=== PATIENT | female | born 1980 | race African-American/Black ===

== ENCOUNTER 2016-11-15 08:24 | Inpatient (IN) ==
[2016-11-15 09:11] LABS: Apearance,Urine CLEAR (Clear); Bilirubin,Urine Negative (Negative); Blood, Urine Negative (Negative); Glucose,Urine (UA) Negative (Negative); Ketones,Urine Negative (Negative); Mucus,Urine Occasional /LPF (Occasional); Nitrite,Urine Negative (Negative); Protein,Urine Negative; RBC,Urine <1 /HPF (0-4); Squamous Epithelial Cell,Urine Occasional /HPF (0-10); Urine Color Yellow (Yellow); Urine Urobilinogen < 2.0 EU/DL (0.2-1.0); WBC,Urine <1 /HPF (0-6)
[2016-11-15] MEDS ORDERED: ONDANSETRON 4 MG/2 ML VIAL IV ONE (09:22)
[2016-11-15] MEDS ORDERED: MEPERIDINE 50 MG/1 ML VIAL IV ONE (09:22)
[2016-11-15] MEDS ORDERED: MEPERIDINE 50 MG/1 ML VIAL ONE (09:24)
[2016-11-15] MEDS ORDERED: ONDANSETRON 4 MG/2 ML VIAL ONE ×2 (09:24→15:55)
[2016-11-15] MEDS ORDERED: ALUM/MAG/SIMETH/LIDO VISC 1:1 30 ML BOTTLE PO ONE ×2 (09:41→10:00)
[2016-11-15] MEDS: LACTATED RINGERS 1,000 ML IV SCH ×2 (09:47→12:29)
[2016-11-15] MEDS ORDERED: MEPERIDINE 25 MG/1 ML VIAL ONE (10:08)
[2016-11-15] MEDS ORDERED: MEPERIDINE 25 MG/1 ML VIAL IV ONE ×2 (10:21→12:09)
--- NOTE | 2016-11-15 10:43 | Ultrasound Report ---
US gallbladder Indication: Upper abdominal pain, nausea/vomiting. Comparison: None. Technique: Multiple longitudinal and transverse real-time sonographic images of the right upper quadrant of the abdomen are obtained. Findings: The liver measures 17.8 cm and demonstrates normal echogenicity without focal abnormality on submitted images. Small amount of debris noted within the bladder suspicious for biliary sludge. Gallbladder wall thickness is upper limits of normal. The gallbladder is not significantly distended. Small-volume cholelithiasis demonstrated which is noted within the region of the gallbladder neck.. Sonographic Mcdaniel sign reportedly positive. The common duct measures 0.4 cm in diameter and there is no evidence of significant intrahepatic ductal dilation. Right kidney measures 10.9 cm. Pancreas obscured by bowel gas. IMPRESSION: Small amount of debris noted within the bladder suspicious for biliary sludge. Gallbladder wall thickness is upper limits of normal. The gallbladder is not significantly distended. Small-volume cholelithiasis demonstrated which is noted within the region of the gallbladder neck.. Sonographic Mcdaniel sign reportedly positive. Cholecystitis not excluded. Recommend correlation with patient presentation, lab values, etc. Critical Results: Initiated by Danya at time of dictation. PROCEDURE INTERPRETED AT [facility] DEPARTMENT OF RADIOLOGY Final Report Signed by: Dr Ori Hernandez
[2016-11-15] MEDS ORDERED: TERBUTALINE 1 MG/1 ML VIAL SUBCUT ONE (12:57)
[2016-11-15] MEDS: ONDANSETRON 4 MG/2 ML VIAL IV PRN ×2 (16:07→22:07)
--- NOTE | 2016-11-15 16:15 | General Surgery Consult Note ---
Assessment and Plan - Time spent with patient Time spent with patient: Greater than 30 minutes (1) Cholecystitis, acute with cholelithiasis Status: Acute Assessment and plan: Ms. Roberts is a very pleasant 36-year-old -[place] female who is 24 weeks gestation with her second baby. She has no medical problems and only surgical history is . She is noted to have a 1 day history of intense abdominal pain radiating through to the back along with nausea and vomiting. Ultrasound showing acute cholecystitis with cholelithiasis. Her labs are pending at this time. We will make her n.p.o. after midnight and see how the patient feels in the morning. Dr. Olmedo may opt to take her to the OR for laparoscopic cholecystectomy in the morning. Dr. Olmedo to see and examined patient further recommendations to follow. Current Visit: Yes (2) Nausea & vomiting Status: Acute Current Visit: Yes (3) 24 weeks gestation of Status: Acute Current Visit: Yes History of Present Illness Chief complaint: Abdominal pain and nausea History of present illness: Ms. Roberts is a 36 year old -[place] female who is 24 weeks with her second baby with no medical history admitted by Dr. Booth from OB with nausea, vomiting, and upper abdominal pain. Patient states she woke at 4 AM this morning with severe epigastric and right and left upper quadrant abdominal pain that radiated through to the back associated with nausea. Patient states she took Tums and Tylenol and it settled for about an hour and then about 6 AM it started back. then she started vomiting. She still feels nauseated and is having pain but she does feel somewhat hungry. She has been n.p.o. all day. She has been receiving Demerol and Zofran from Dr. Booth. Patient had a gallbladder ultrasound that showed a small amount of debris within the gallbladder suspicious for biliary sludge with gallbladder wall thickness in the upper limits of normal. There is also small volume cholelithiasis demonstrated in the neck. Her sonographic Mcdaniel sign was positive. CBC, CMP, amylase and lipase are all pending. Upon exam patient is visibly nauseated and mildly uncomfortable. She is tender to palpation in the epigastric right and left upper quadrants. She denies headache, dysphagia, chest pain, shortness of breath, constipation, or lower extremity edema. Dr. Olmedo has been consulted for evaluation. Home Medications Medication Instructions Recorded Confirmed Type Vit No.130/Iron/Folic 1 each PO DAILY 11/15/16 11/15/16 History [ Vitamins] Allergies Allergy/AdvReac Type Severity Reaction Status Date / Time No Known Allergies Allergy Verified 11/15/16 08:49 Medical,Surgical,& Family Hx - Medical History Cardio: No history of: Hypertension Respiratory: No history of: Pneumonia Reproductive: No history of: Complication - Surgical History Reproductive Surgeries: Surgical HX of;: Section - Family History Family History: Reports;: Family Heart Disease - Social History Smoking Status: Never smoker Frequency of Alcohol Use: None Type of Drug Use: None Marital Status: Lives With:: Spouse Functional capacity: independent ambulation Review of systems: A complete 10 system review of systems was obtained and pertinent positives and negatives per HPI Exam - Constitutional Exam: Constitutional System: Mild distress. No tremulousness. Head: Normocephalic, atraumatic. Ears, Nose and Throat System: No evidence of Otitis or Mastoiditis. No epistaxis or discharge Eyes System: Pupils equal, round, and reactive. Extraocular muscles intact. Neck: Supple, without adenopathy, No jugular venous distention. No thyromegaly, neck mass, or prior surgery apparent. Respiratory System: Chest clear to auscultation. Cardiovascular System: Heart with regular rate and rhythm. No murmur. GI System: Abdomen firm, moderately tender in epigastrium, left and right upper quadrant. Normo active bowel sounds present. Musculoskeletal System: limbs with no pedal edema. Full distal pulses. Neurological System: No discernable sensory deficit. No aphasia Psychiatric System: Conversation is rational Results - Labs Labs: CBC, CMP, amylase and lipase are all pending - Diagnostic Findings Procedure: Ultrasound: report reviewed by me (Small amount of debris noted within the gallbladder suspicious for biliary sludge. Gallbladder wall thickness is upper limits of normal. Gallbladder is not distended but there is small amount cholelithiasis demonstrated within the region of the gallbladder neck)
[2016-11-15 16:36] LABS: Basophils % 0.3 % (0.0-0.8); Hematocrit 36.1 VOL% (35.7-47.0); Immature Granulocytes % 2.1 %; Immature Granulocytes Absolute 0.24 #; Lymphocytes # 1.5 10*3/uL (1.4-4.0); Lymphocytes % 12.9 % (21.3-54.2); Mean Corpuscular HGB Conc 33.2 GM/DL (32-36); Mean Corpuscular Hemoglobin 27 PG (27-34); Mean Corpuscular Volume 79.9 FL (87-102); Mean Platelet Volume 10.9 FL (9.6-12.0); Monocytes # 0.6 10*3/uL (0.11-0.8); Monocytes % 5.2 % (1.7-12.7); Neutrophils # 9.2 10*3/uL (1.4-7.4); Neutrophils % 79.5 % (38.7-73.9); Platelet Count 203 T/CUMM (130-400); Red Blood Count 4.52 MC/CUMM (3.8-5.5); Red Cell Distribution Width 14.5 % (9.3-17.3); White Blood Count 11.5 T/CUMM (4-12)
[2016-11-15 17:04] LABS: Alanine Aminotransferase 23 U/L (13-56); Alkaline Phosphatase 104 U/L (45-117); Amylase 88 U/L (25-115); Aspartate Amino Transferase 17 U/L (0-37); Bilirubin,Total < 0.39 MG/DL (0.2-1.0); Blood Urea Nitrogen 5 MG/DL (7-18); Calcium 9.2 MG/DL (8.5-10.1); Glucose 77 MG/DL (74-106); Osmolality,Calculated 268.8 MOS/KG (273-304); Sodium 137 MMOL/L (136-145); Total Protein 6.8 G/DL (6.4-8.3)
[2016-11-15] MEDS ORDERED: ONDANSETRON 4 MG/2 ML VIAL IV PRN (18:09)
--- NOTE | 2016-11-15 18:17 | OB/GYN History & Physical ---
History of Present Illness Chief complaint: Right upper quadrant pain after eating fried greasy food last evening History of present illness: Ms. Roberts is a 36 year old female 36-year-old 2 para 1 at approximately 24 weeks gestation, who presented to labor and delivery with right upper quadrant pain. Patient is being followed at the [facility] and further questioning demonstrated that she is a previous section. Ultrasound of the abdomen demonstrated multiple gallstones and sludge. This patient received IV fluids, IV Demerol and anti- emetics to try to relieve her symptoms. Patient is resting very comfortably at this particular time. Fetus a heart tones are category 1. In light of these findings on the ultrasound this patient will be evaluated by general surgery for further evaluation. Home Medications Medication Instructions Recorded Confirmed Type Vit No.130/Iron/Folic 1 each PO DAILY 11/15/16 11/15/16 History [ Vitamins] Allergies Allergy/AdvReac Type Severity Reaction Status Date / Time No Known Allergies Allergy Verified 11/15/16 08:49 Medical,Surgical,& Family Hx - Medical History Cardio: No history of: Hypertension Respiratory: No history of: Pneumonia Reproductive: No history of: Complication - Surgical History Reproductive Surgeries: Surgical HX of;: Section - Family History Family History: Reports;: Family Heart Disease - Social History Smoking Status: Never smoker Frequency of Alcohol Use: None Type of Drug Use: None 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 - Constitutional General appearance: mild distress - Antepartum / Post Antepartum Exam Cervix - Dilatation: Thick closed - Head Head exam: Present: normal inspection - Eye Eye exam: Present: EOMI Pupils: Present: ROLAND - ENT ENT exam: Present: normal exam - Neck Neck exam: Present: normal inspection - Respiratory Respiratory exam: Present: clear to auscultation bilaterally - Breast Breasts: as per HPI Menstruation: as per HPI - Cardiovascular Cardiovascular exam: Present: regular rate and rhythm - GI/Abdominal GI/Abdominal exam: Present: normal bowel sounds, guarding, tenderness (Right upper quadrant, midsternal area) - Extremities Exam Extremities exam: Present: normal inspection - Back Exam Back exam: Present: normal inspection - Neurological Exam Neurological exam: Present: alert, oriented X3 - Psychiatric Psychiatric exam: Present: normal affect - Skin Skin exam: Present: normal color Assessment and Plan (1) Cholecystitis, acute with cholelithiasis Status: Acute Assessment and plan: 24 weeks gestation with acute cholecystitis with cholelithiasis. This patient will be evaluated for by general surgery for further management. Risks and benefits were thoroughly discussed with this patient at this point time this patient is in full agreement. Current Visit: Yes Results - Labs CBC & BMP: 11/15/16 16:27 11/15/16 16:27
[2016-11-15] MEDS: ceFAZolin 2,000 MG in PREMIX 1 EACH IV SCH (18:42)
[2016-11-15] MEDS: MEPERIDINE 25 MG/1 ML VIAL IV PRN (22:12)
[2016-11-16] MEDS: ceFAZolin 2,000 MG in PREMIX 1 EACH IV SCH ×4 (00:40→18:26)
[2016-11-16] MEDS: MEPERIDINE 25 MG/1 ML VIAL IV PRN ×6 (01:32→14:35)
[2016-11-16] MEDS: ONDANSETRON 4 MG/2 ML VIAL IV PRN ×4 (04:59→17:12)
[2016-11-16] MEDS ORDERED: MEPERIDINE 25 MG/1 ML VIAL IV ONE (08:30)
--- NOTE | 2016-11-16 09:06 | General Surgery Progress Note ---
Assessment and Plan - Time spent with patient Time spent with patient: Less than 30 minutes (1) Cholecystitis, acute with cholelithiasis Status: Acute Assessment and plan: Ms. Roberts is a very pleasant 36-year-old -[place] female who is 24 weeks gestation with her second baby. She has no medical problems and only surgical history is . She is noted to have a 1 day history of intense abdominal pain radiating through to the back along with nausea and vomiting. Ultrasound showing acute cholecystitis with cholelithiasis. Her labs are pending at this time. We will make her n.p.o. after midnight and see how the patient feels in the morning. Dr. Olmedo may opt to take her to the OR for laparoscopic cholecystectomy in the morning. Dr. Olmedo to see and examined patient further recommendations to follow. 11/16/2016 Dr. Olmedo has become ill and Dr. Zayas is taking over care. Patient is still not feeling well so she will be taken to the OR today for laparoscopic cholecystectomy. Her white count was normal, LFTs and pancreatic enzymes were all normal. Dr. Zayas will see and examine patient. Preop orders have been submitted. Current Visit: Yes (2) Nausea & vomiting Status: Acute Current Visit: Yes (3) 24 weeks gestation of Status: Acute Current Visit: Yes Subjective Narrative: Ms. Roberts is still not feeling well this morning. She tolerated her clear liquid yesterday but she continues to have pain and nausea. She wants to go ahead and have her gallbladder removed if possible. She is n.p.o. Exam - Constitutional Vitals: Period Temp Pulse Resp BP Sys/Peterson Pulse Ox Last 24 Hr 97.8 F-98.1 F 93-101 18-20 95-132/52-72 98-100 Exam: 36-year-old -[place] female, mild distress due to pain, alert and oriented is present Chest clear CV regular rate and rhythm Abdomen protuberant and firm, tender epigastrium left and right upper quadrant Extremities no edema Results - Labs CBC & BMP: 11/15/16 16:27 11/15/16 16:27 Lab Results: I have reviewed the past 24 hour labs
[2016-11-16] MEDS ORDERED: CITRIC ACID/SODIUM CITRATE 30 ML UDCUP PO ONE (10:19)
[2016-11-16] MEDS ORDERED: FAMOTIDINE 20 MG/2 ML VIAL IV ONE (10:22)
[2016-11-16] MEDS ORDERED: TISSUE ADHESIVE 1 EACH APPLICATOR TOP ONE (12:15)
[2016-11-16] MEDS ORDERED: LIDOCAINE 1%/EPI INJ 20 ML VIAL ONE (12:16)
[2016-11-16] MEDS ORDERED: PROPOFOL 200 MG/20 ML VIAL IV ONE (12:51)
[2016-11-16] MEDS ORDERED: ONDANSETRON 4 MG/2 ML VIAL ONE ×2 (12:51→14:20)
[2016-11-16] MEDS ORDERED: LIDOCAINE 1% 5 ML VIAL ONE (12:51)
[2016-11-16] MEDS ORDERED: ROCURONIUM 100 MG/10 ML VIAL IV ONE (12:51)
[2016-11-16] MEDS ORDERED: SUCCINYLCHOLINE 200 MG/10 ML VIAL ONE (12:51)
--- NOTE | 2016-11-16 13:51 | Progress Note ---
Assessment and Plan (1) Cholecystitis, acute with cholelithiasis Status: Acute Assessment and plan: 24 weeks gestation with acute cholecystitis with cholelithiasis. This patient will be evaluated for by general surgery for further management. Risks and benefits were thoroughly discussed with this patient at this point time this patient is in full agreement. Current Visit: Yes Family Medicine PN Sub Interval history: 36-year-old female with acute cholecystitis, patient still experiencing discomfort after receiving IV fluid anti-medics and analgesic. Early this a.m. after reexamining the patient she still has a right upper quadrant and midsternal discomfort. General surgery will evaluate this patient determine whether or not a laparoscopic cholecystectomy will be indicated at this time. I am in full agreement with this particular option if possible if not we will try oral medication. Will follow this patient after her surgical procedure risks benefits thoroughly discussed with this patient and her . Exam (Progress Note) - Constitutional Vitals: Period Temp Pulse Resp BP Sys/Peterson Pulse Ox Last 24 Hr 97.8 F-98.1 F 86-101 18-20 95-132/52-72 97-100 Results - Labs CBC & BMP: 11/15/16 16:27 11/15/16 16:27
[2016-11-16] MEDS ORDERED: HYDROmorphone 2 MG/1 ML VIAL ONE (14:17)
[2016-11-16] MEDS ORDERED: MEPERIDINE 25 MG/1 ML VIAL ONE ×2 (14:19→14:50)
[2016-11-16] MEDS ORDERED: ONDANSETRON 4 MG/2 ML VIAL IV PRN (14:24)
[2016-11-16] MEDS ORDERED: fentaNYL 100 MCG/2 ML VIAL ONE (14:28)
[2016-11-16] MEDS ORDERED: LACTATED RINGERS 1,000 ML IV SCH (15:00)
--- NOTE | 2016-11-16 15:27 | Operative Note ---
Date of procedure: 11/16/16 Pre-op diagnosis: Acute cholecystitis Post-op diagnosis: same Procedure: Preoperative diagnosis Acute cholecystitis Postoperative diagnosis Same Procedures performed Laparoscopic cholecystectomy Findings Acute and chronic cholecystitis was seen. The critical view of safety was obtained prior to placing clips on the cystic duct and cystic artery. Complications None apparent Specimen Gallbladder Anesthesia GETA Blood loss 5 mL Indications Acute cholecystitis 24 weeks patient. The risks, benefits, and alternatives of the operation were discussed with the patient in detail, and the expected outcomes were reviewed. In particular, the risk of bowel injury, liver injury, bile duct leak and bile duct injury, as well as pancreatitis and retained or drop stones were discussed in detail. All the patient's questions were answered. She like to proceed with the operation. We did discuss the risk of demise in addition to the standard risks of this operation. I felt that the risk of having problems with the was higher by not doing surgery on the gallbladder especially since she is in the second trimester. Description of procedure The patient was taken to the operating room and transferred to the operating table in the supine position. Pressure points were padded and SCDs were placed to bilateral lower extremities. General endotracheal anesthesia was administered. The abdomen was prepped chlorhexidine and draped sterilely. Preoperative antibiotics were administered, a timeout was performed. The abdomen was entered in the midepigastric location with a direct cutdown technique. An 11 mm skin incision was made with an 11 blade scalpel the fascia was opened with a knife. A trocar was placed and the CO2 was inserted into the abdomen. Diagnostic laparoscopy revealed no evidence of trocar placement injury. The patient was placed in reverse Trendelenburg and left side rolled down position. Under direct visualization, and after local anesthetic was administered, a 5 mm supraumbilical trocar and 2 right subcostal 5 mm trochars were placed. The gallbladder had evidence of acute inflammation. The gallbladder was grasped at the fundus and infundibulum. The cystic plate peritoneum was dissected into the critical view of safety was obtained. The cystic duct and cystic artery were clipped twice initially and once laterally and divided laparoscopically with scissors between clips. Gallbladder was removed from the gallbladder fossa using hook electrocautery. The gallbladder was placed in a Endo Catch retrieval bag through the 11 mm trocar and removed through the trocar with no significant fascial extension of the incision. The gallbladder fossa was suction irrigated until the effluent was clear. The CO2 was released from the abdomen and the trochars were removed. The fascia at the midepigastric trocar site was closed in 2 layers with 0 Vicryl sutures. The skin incisions were closed with 4-0 Monocryl subcuticular suture and sterile skin glue. The patient was awakened from anesthesia and transferred to recovery. Postoperative plan Advance diet as tolerated Pain control monitoring per OB Anesthesia: ABHILASH Surgeon / Physician: Fan Zayas Estimated blood loss: minimal Specimens: other (gallbladder) Condition: stable Disposition: PACU Results - Labs CBC & BMP: 11/15/16 16:27 11/15/16 16:27 Discharge Plan - Discharge Medications No Action Vit No.130/Iron/Folic [ Vitamins] 1 each PO DAILY - Follow Up or Referral - Forms/Instructions
[2016-11-17] MEDS: ceFAZolin 2,000 MG in PREMIX 1 EACH IV SCH ×3 (00:14→14:22)
[2016-11-17] MEDS: LACTATED RINGERS 1,000 ML IV SCH (00:14)
[2016-11-17 06:53] LABS: Basophils % 0.1 % (0.0-0.8); Eosinophils # 0.1 10*3/uL (0.0-0.87); Eosinophils % 0.7 % (0.00-10.9); Hematocrit 33.1 VOL% (35.7-47.0); Hemoglobin 10.7 GM/DL (12.0-16.0); Immature Granulocytes % 1.6 %; Immature Granulocytes Absolute 0.12 #; Lymphocytes # 1.9 10*3/uL (1.4-4.0); Lymphocytes % 25.1 % (21.3-54.2); Mean Corpuscular HGB Conc 32.3 GM/DL (32-36); Mean Corpuscular Hemoglobin 27 PG (27-34); Mean Corpuscular Volume 82.5 FL (87-102); Mean Platelet Volume 10.8 FL (9.6-12.0); Monocytes # 0.6 10*3/uL (0.11-0.8); Monocytes % 8.1 % (1.7-12.7); Neutrophils # 4.9 10*3/uL (1.4-7.4); Neutrophils % 64.4 % (38.7-73.9); Platelet Count 180 T/CUMM (130-400); Red Blood Count 4.01 MC/CUMM (3.8-5.5); Red Cell Distribution Width 14.6 % (9.3-17.3); White Blood Count 7.6 T/CUMM (4-12)
[2016-11-17] MEDS ORDERED: MAGNESIUM HYDROXIDE SUSP 30 ML UDCUP PO PRN (07:13)
[2016-11-17 07:24] LABS: Alanine Aminotransferase 23 U/L (13-56); Albumin 2.5 G/DL (3.4-5.0); Alkaline Phosphatase 88 U/L (45-117); Aspartate Amino Transferase 22 U/L (0-37); Bilirubin,Total < 0.39 MG/DL (0.2-1.0); Blood Urea Nitrogen 4 MG/DL (7-18); Calcium 8.5 MG/DL (8.5-10.1); Glucose 90 MG/DL (74-106); Magnesium 2.1 MG/DL (1.8-2.4); Osmolality,Calculated 273.5 MOS/KG (273-304); Sodium 139 MMOL/L (136-145); Total Protein 5.7 G/DL (6.4-8.3)
--- NOTE | 2016-11-17 09:16 | General Surgery Progress Note ---
Assessment and Plan (1) Cholecystitis, acute with cholelithiasis Status: Acute Assessment and plan: The patient appears to be recovering well from her laparoscopic cholecystectomy. Her hemoglobin is down some this morning but she looks very well and feels much better than she did last night. Her blood pressure is a little bit low but she has no tachycardia or orthostatic symptoms. I would recommend stopping her IV fluids and letting her eat normally. I would like to repeat hemoglobin at noon but if it is stable she can be discharged home. I have left a prescription for pain medication and Zofran ODT and a follow-up appointment with me in clinic in 2 weeks. Current Visit: Yes Subjective Patient reports: Present: no new complaints, feels better, still having pain, pain is less, tolerating liquids well, afebrile Narrative: I have been told by the nursing that the baby is doing well. The patient feels much better today. She had some nausea last night and some abdominal pain but it is all feeling better and is well controlled this morning. Her hemoglobin is down to 10.7 from 12.1. It does look dilutional but her blood pressure is a little bit low this morning. Her chemistry is normal and her bilirubin is normal. Exam - Constitutional Vitals: Period Temp Pulse Resp BP Sys/Peterson Pulse Ox Last 24 Hr 97.1 F-98.5 F 84-117 16-24 98-139/51-85 96-100 General appearance: no acute distress, over weight - Head Head exam: Present: normal inspection, normocephalic - Eye Eye exam: Present: EOMI. Absent: scleral icterus Pupils: Present: ROLAND - ENT ENT exam: Present: normal exam Mouth exam: Present: normal external inspection, normal voice - Neck Neck exam: Present: normal inspection, trachea midline - Respiratory Respiratory exam: Present: clear to auscultation bilaterally. Absent: accessory muscle use, chest wall tenderness - Cardiovascular Cardiovascular exam: Present: RRR. Absent: systolic murmur, tachycardia - GI/Abdominal GI/Abdominal exam: Present: tenderness (Expected postoperative tenderness), soft , other (The incisions are clean and dry with no evidence of infection or bleeding). Absent: rebound - Extremities Exam Extremities exam: Present: normal inspection, normal capillary refill - Back Exam Back exam: Present: normal inspection - Neurological Exam Neurological exam: Present: alert, oriented X3 Speech: Present: normal - Skin Skin exam: Present: normal color, warm Results - Labs CBC & BMP: 11/17/16 06:40 11/17/16 06:40 Specialty Discharge - Follow Up or Referrals Follow up with: Fan Zayas MD [Physician] - 2 Weeks
--- NOTE | 2016-11-17 12:06 | Discharge Summary ---
Hospital Course - Hospital Course Hospital Course: Status post laparoscopic cholecystectomy 24 weeks gestation. This patient is postoperative day #1. She is tolerating her diet, pain is been minimal, fetus is very active. Will obtain an ultrasound of the fetus before discharge. General surgery has recommended discharge and she is tolerating her diet and she is afebrile. Patient will follow-up our office in approximately 2 weeks risks and benefits were thoroughly discussed and her postop instructions were given. Diagnosis - Discharge Diagnosis (1) Cholecystitis, acute with cholelithiasis Status: Acute Specialty Discharge - Follow Up or Referrals Follow up with: Fan Zayas MD [Physician] - 2 Weeks Concetta Booth MD [Physician] - Discharge Plan - Discharge Data Condition at Discharge: Stable Discharge Diet: advance to your usual diet Activity: resume usual activities as tolerated, increase activity as tolerated Hygiene: may shower Weight Bearing at Discharge: weight bear as tolerated Driving: no restrictions Contact your physician if you experience:: fever over 101, Shortness of breath ( Decreased movement), Bleeding - Discharge Medications New Hydrocodone/Acetaminophen [[place] 7.5-325 Tablet] 1 each PO Q6H PRN #30 tablet PRN Reason: Abdominal Pain No Action Vit No.130/Iron/Folic [ Vitamins] 1 each PO DAILY - Follow Up or Referral Follow Up: Fan Zayas MD [Physician] - 2 Weeks Concetta Booth MD [Physician] - 2 Weeks - Forms/Instructions Instructions: (DC), Low Fat Diet (DC), Laparoscopic Cholecystectomy ( DC) Exam - Constitutional Vitals: Period Temp Pulse Resp BP Sys/Peterson Pulse Ox Last 24 Hr 97.1 F-98.5 F 84-117 16-24 98-139/51-85 96-100 Discharge Results Procedures and tests throughout hospitalization: Pending Orders 11/17/16 11:36 US follow up OB sonogram Stat 11/17/16 12:00 Hemoglobin and Hematocrit Timed Labs on day of discharge: Labs from last 24 hours 11/17/16 11/17/16 06:40 06:40 WBC 7.6 D RBC 4.01 Hgb 10.7 L Hct 33.1 L MCV 82.5 L MCH 27 MCHC 32.3 RDW 14.6 Plt Count 180 MPV 10.8 Neut % (Auto) 64.4 Lymph % (Auto) 25.1 [place] % (Auto) 8.1 Eos % (Auto) 0.7 Baso % (Auto) 0.1 Neut # (Auto) 4.9 Lymph # (Auto) 1.9 [place] # (Auto) 0.6 Eos # (Auto) 0.1 Baso # (Auto) 0.0 Immature Gran % 1.6 Nucleated RBC % 0.0 Immature Gran # 0.12 Nucleated RBCs # 0.00 Sodium 139 Potassium 4.0 Chloride 105 Carbon Dioxide 26 Anion Gap 12.0 BUN 4 L Creatinine 0.70 GFR Calculation 134 BUN/Creatinine Ratio 5.00 L Glucose 90 Calculated Osmolality 273.5 Calcium 8.5 Magnesium 2.1 Total Bilirubin < 0.39 AST 22 ALT 23 Alkaline Phosphatase 88 Total Protein 5.7 L Albumin 2.5 L Globulin 3.2 Albumin/Globulin Ratio 0.7 L DS: Provider Date of admission: 11/15/16 18:09 Primary care physician: CARSON Gonzalez Attending physician on admission: Concetta Booth MD Consults: 11/15/16 11:43 Consult to Physician [CONS] Routine Comment: [facility]UP @ [facility] Consulting Provider: Rohit Olemdo Consulting Provider Notified: No When should Consulting Provider be notified: Now 11/15/16 18:09 Consult to Anesthesiology [CONS] Routine Consulting Provider: Reason for Anesthesiology: Epidural Consult Comment: Epidural for pain managment Discharging clinician: Concetta Booth MD
[2016-11-17 12:13] LABS: Hemoglobin 12.6 GM/DL (12.0-16.0)
--- NOTE | 2016-11-17 12:26 | Pathology Report from [facility] ---
[facility] [place] # : [id number] PATIENT NAME : Stone Roberts ORDERING DR : Fan Zayas MD CLINICAL HX: Acute cholecystitis - Cholelithiasis POST-OP DX: Same SPECIMEN INFO: Gallbladder GROSS DESCRIPTION: The specimen is received in formalin labeled with the patients name and consists of an intact pear-shaped gallbladder measuring 7.3 x 3.0 cm. The serosa is smooth, erythematous, roque. The wall averages 0.2 cm in thickness. The mucosa is markedly erythematous with focal areas of ulceration present. There is diffuse yellow streaking throughout. The lumen contains viscous, hyperemic, yellow bile. Within the bile is a 1.8 x 1.2 cm crystalline yellow-green stone. Steam Cleaner tissue submitted in one cassette. DIAGNOSIS FOR STONE ROBERTS: GALLBLADDER, CHOLECYSTECTOMY: Acute and chronic cholecystitis; cholelithiasis. COLLECTED DATE: 11/16/2016 [facility] REPORT DATE: 11/17/2016 ELECTRONICALLY SIGNED BY: Siena Hendrickson M.D. 11/17/2016 - 11:25:57 [facility]ITAL[facility]
--- NOTE | 2016-11-17 12:43 | Ultrasound Report ---
Exam: US follow up OB sonogram Date: 11/17/2016 11:36 AM Comparison: None Indication: well being, postop Technique:[Multiple transabdominal real-time scans were obtained of the pelvis. Color-flow scans obtained. Ultrasound images were captured and stored.] Findings: Single intrauterine fetus in cephalic presentation with a heart rate 161 BPM. The posterior placenta is not low-lying in position with cervical length of 54 mm. There is a normal amount of amniotic fluid with largest pocket measuring 90 mm. Maternal ovaries are not identified. No detailed survey scans were obtained. No scans were obtained for dating purposes. Impression: Viable single intrauterine fetus in the cephalic presentation with cervical length of 54 mm. Normal amount of amniotic fluid. PROCEDURE INTERPRETED AT [facility] DEPARTMENT OF RADIOLOGY Final Report Signed by: Dr. Cara Alexander
[2016-11-17 13:17] VITALS: BP 112/85
== END 2016-11-17 16:10 | disposition home or self-care (01) | DRG 781 ==
LOC: N.LDOUT 08:24 → N.LD 08:27 → N.OB 21:30
PROVIDERS: ADMIT Obstetrics & Gynecology; ATTEND Obstetrics & Gynecology
PROC: LAPCHOL (2016-11-16 12:51)

== ENCOUNTER 2017-03-05 07:00 | Inpatient (IN) ==
[2017-03-05] MEDS ORDERED: ceFAZolin 2,000 MG in PREMIX 1 EACH IV ONE (08:03)
[2017-03-05] MEDS ORDERED: CITRIC ACID/SODIUM CITRATE 30 ML UDCUP PO ONE (08:03)
[2017-03-05] MEDS ORDERED: FAMOTIDINE 20 MG/2 ML VIAL IV ONE (08:03)
[2017-03-05] MEDS ORDERED: LACTATED RINGERS 1,000 ML IV SCH ×2 (08:30→11:00)
[2017-03-05 08:39] LABS: Basophils % 0.2 % (0.0-0.8); Eosinophils % 0.4 % (0.00-10.9); Hematocrit 40.4 VOL% (35.7-47.0); Hemoglobin 13.5 GM/DL (12.0-16.0); Immature Granulocytes % 0.6 %; Immature Granulocytes Absolute 0.03 #; Lymphocytes # 1.5 10*3/uL (1.4-4.0); Lymphocytes % 27.9 % (21.3-54.2); Mean Corpuscular HGB Conc 33.4 GM/DL (32-36); Mean Corpuscular Hemoglobin 27 PG (27-34); Mean Corpuscular Volume 80.3 FL (87-102); Mean Platelet Volume 11.8 FL (9.6-12.0); Monocytes # 0.5 10*3/uL (0.11-0.8); Monocytes % 8.4 % (1.7-12.7); Neutrophils # 3.4 10*3/uL (1.4-7.4); Neutrophils % 62.5 % (38.7-73.9); Platelet Count 133 T/CUMM (130-400); Red Blood Count 5.03 MC/CUMM (3.8-5.5); Red Cell Distribution Width 16.1 % (9.3-17.3); White Blood Count 5.4 T/CUMM (4-12)
[2017-03-05 09:09] LABS: Alanine Aminotransferase 24 U/L (13-56); Albumin 2.7 G/DL (3.4-5.0); Alkaline Phosphatase 148 U/L (45-117); Aspartate Amino Transferase 16 U/L (0-37); Bilirubin,Total < 0.39 MG/DL (0.2-1.0); Blood Urea Nitrogen 10 MG/DL (7-18); Calcium 8.6 MG/DL (8.5-10.1); Glucose 76 MG/DL (74-106); Osmolality,Calculated 272.7 MOS/KG (273-304); Sodium 138 MMOL/L (136-145)
[2017-03-05] MEDS ORDERED: OXYTOCIN 10 UNIT/ML VIAL IM ONE (09:14)
[2017-03-05] MEDS ORDERED: OXYTOCIN 10 UNIT/ML VIAL ONE (09:14)
[2017-03-05] MEDS ORDERED: ONDANSETRON 4 MG/2 ML VIAL ONE (09:18)
[2017-03-05] MEDS ORDERED: PHENYLEPHRINE 1 MG/10 ML SYRINGE IV ONE (09:18)
[2017-03-05] MEDS ORDERED: OXYTOCIN/LR 20 UNIT/1,000 ML BAG IV ONE ×3 (09:50→11:35)
[2017-03-05] MEDS: OXYTOCIN/LR 30 UNIT/1,000 ML BAG IV ONE ×2 (10:00→13:01)
[2017-03-05] MEDS ORDERED: ACETAMINOPHEN 325 MG TABLET PO PRN (10:38)
[2017-03-05] MEDS ORDERED: RHO(D) IMMUNE GLOBULIN 300 MCG SYRINGE IM ONE (10:38)
[2017-03-05 10:48] LABS: Cord Venous Blood HCO3 20.8 MMOL/L; Cord Venous Blood PCO2 39.3 MMHG; Cord Venous Blood PO2 35.6
[2017-03-05 10:56] LABS: Apearance,Urine CLEAR (Clear); Bacteria,Urine Occasional /HPF (Few); Bilirubin,Urine Negative (Negative); Blood, Urine Negative (Negative); Glucose,Urine (UA) Negative (Negative); Hyaline Casts,Urine 1 /LPF (0-3); Ketones,Urine Negative (Negative); Mucus,Urine Occasional /LPF (Occasional); Nitrite,Urine Negative (Negative); Protein,Urine 100 MG/DL; RBC,Urine 1 /HPF (0-4); Squamous Epithelial Cell,Urine Occasional /HPF (0-10); Urine Color Yellow (Yellow); Urine Specific Gravity 1.016 (1.001-1.035); Urine Urobilinogen < 2.0 EU/DL (0.2-1.0); WBC,Urine 1 /HPF (0-6)
[2017-03-05] MEDS: ONDANSETRON 4 MG/2 ML VIAL IV PRN (11:35)
[2017-03-05] MEDS ORDERED: MIDAZOLAM 2 MG/2 ML VIAL ONE (12:18)
[2017-03-05] MEDS ORDERED: MORPHINE 10 MG/10 ML VIAL ONE (12:18)
[2017-03-05] MEDS ORDERED: fentaNYL 100 MCG/2 ML VIAL ONE (12:18)
[2017-03-05 18:50] LABS: Basophils % 0.1 % (0.0-0.8); Hematocrit 30.4 VOL% (35.7-47.0); Immature Granulocytes % 0.4 %; Immature Granulocytes Absolute 0.04 #; Lymphocytes # 1.2 10*3/uL (1.4-4.0); Mean Corpuscular HGB Conc 33.9 GM/DL (32-36); Mean Corpuscular Hemoglobin 28 PG (27-34); Mean Corpuscular Volume 81.1 FL (87-102); Mean Platelet Volume 12.5 FL (9.6-12.0); Monocytes # 0.7 10*3/uL (0.11-0.8); Monocytes % 6.8 % (1.7-12.7); Neutrophils # 8.1 10*3/uL (1.4-7.4); Neutrophils % 80.7 % (38.7-73.9); Platelet Count 122 T/CUMM (130-400)
[2017-03-05 18:52] LABS: Hemoglobin 10.3 GM/DL (12.0-16.0); Red Blood Count 3.75 MC/CUMM (3.8-5.5)
[2017-03-05 20:43] LABS: Hepatitis B Surface Ag Quant < 0.10 Index; Hepatitis B Surface Ag Result Negative (Negative)
[2017-03-05] MEDS: DOCUSATE SODIUM 100 MG CAPSULE PO SCH (21:36)
[2017-03-05] MEDS ORDERED: MEPERIDINE 25 MG/1 ML VIAL IV PRN (23:00)
[2017-03-06] MEDS: ONDANSETRON 4 MG/2 ML VIAL IV PRN (00:17)
[2017-03-06] MEDS: IBUPROFEN 800 MG TABLET PO PRN ×2 (02:26→15:42)
[2017-03-06] MEDS ORDERED: oxyCODONE/ACETAMINOPHEN 5-325 MG TABLET PO PRN (06:07)
[2017-03-06] MEDS: oxyCODONE/ACETAMINOPHEN 5-325 MG TABLET PO PRN ×2 (06:31→15:43)
[2017-03-06 07:17] LABS: Basophils % 0.1 % (0.0-0.8); Eosinophils % 0.1 % (0.00-10.9); Hematocrit 26.9 VOL% (35.7-47.0); Hemoglobin 9.1 GM/DL (12.0-16.0); Immature Granulocytes % 0.7 %; Immature Granulocytes Absolute 0.07 #; Lymphocytes # 1.2 10*3/uL (1.4-4.0); Lymphocytes % 11.7 % (21.3-54.2); Mean Corpuscular HGB Conc 33.8 GM/DL (32-36); Mean Corpuscular Hemoglobin 27 PG (27-34); Mean Corpuscular Volume 80.8 FL (87-102); Mean Platelet Volume 12.2 FL (9.6-12.0); Monocytes # 0.9 10*3/uL (0.11-0.8); Monocytes % 9.1 % (1.7-12.7); Neutrophils % 78.3 % (38.7-73.9); Platelet Count 114 T/CUMM (130-400); Red Blood Count 3.33 MC/CUMM (3.8-5.5); Red Cell Distribution Width 16.5 % (9.3-17.3); White Blood Count 10.2 T/CUMM (4-12)
[2017-03-06] MEDS: FERROUS SULFATE 325 MG TABLET PO SCH ×2 (08:48→20:40)
[2017-03-06] MEDS: MAGNESIUM HYDROXIDE SUSP 30 ML UDCUP PO PRN ×2 (08:48→20:40)
[2017-03-06] MEDS: MULTIVITAMIN (PRENATAL) TABLET PO SCH (08:48)
[2017-03-06] MEDS: DOCUSATE SODIUM 100 MG CAPSULE PO SCH ×2 (08:48→20:40)
[2017-03-06] MEDS: SIMETHICONE CHEW 80 MG TABLET PO PRN ×2 (08:51→20:40)
[2017-03-06] MEDS ORDERED: BISACODYL 10 MG SUPP RECTAL PRN (19:50)
[2017-03-06 22:54] LABS: HIV Antigen/Antibody Result Nonreactive (Nonreactive)
[2017-03-07] MEDS: IBUPROFEN 800 MG TABLET PO PRN (00:09)
[2017-03-07] MEDS: oxyCODONE/ACETAMINOPHEN 5-325 MG TABLET PO PRN ×4 (00:10→19:02)
[2017-03-07] MEDS ORDERED: oxyCODONE/ACETAMINOPHEN 5-325 MG TABLET PO PRN (02:23)
[2017-03-07] MEDS: METOCLOPRAMIDE 10 MG TABLET PO SCH ×2 (07:01→19:17)
[2017-03-07] MEDS ORDERED: MAGNESIUM CITRATE 300 ML BOTTLE PO ONE (07:08)
[2017-03-07] MEDS ORDERED: METOCLOPRAMIDE 10 MG/2 ML VIAL IV SCH (08:00)
[2017-03-07] MEDS: MULTIVITAMIN (PRENATAL) TABLET PO SCH (09:44)
[2017-03-07] MEDS: DOCUSATE SODIUM 100 MG CAPSULE PO SCH ×2 (09:44→22:19)
[2017-03-07] MEDS: FERROUS SULFATE 325 MG TABLET PO SCH ×2 (09:44→22:19)
[2017-03-07] MEDS: SIMETHICONE CHEW 80 MG TABLET PO PRN (19:05)
[2017-03-08] MEDS: oxyCODONE/ACETAMINOPHEN 5-325 MG TABLET PO PRN ×2 (00:03→05:04)
[2017-03-08 07:41] VITALS: BP 116/71
[2017-03-08] MEDS: FERROUS SULFATE 325 MG TABLET PO SCH (09:53)
[2017-03-08] MEDS: MULTIVITAMIN (PRENATAL) TABLET PO SCH (09:53)
[2017-03-08] MEDS: DOCUSATE SODIUM 100 MG CAPSULE PO SCH (09:53)
[2017-03-08] MEDS ORDERED: DIPH/TET/ACEL PERT BOOSTER VACCINE 0.5 ML VIAL IM ONE ×2 (10:33→10:37)
== END 2017-03-08 11:25 | disposition home or self-care (01) | DRG 766 ==
LOC: EDSTATUS 07:00 → N.LDOUT 07:08 → N.LD 07:10 → N.OB 14:55
PROVIDERS: ADMIT Obstetrics & Gynecology; ATTEND Obstetrics & Gynecology
PROC: LDCSECT (ICD-10-PCS; 2017-03-05 08:30)